=== PATIENT | female | born 1985 | race African-American/Black ===

== ENCOUNTER 2016-08-18 15:23 | Emergency (ER) | payer OTHER ==
[2016-08-18 16:07] LABS: Hematocrit 40.1 % (37.0-47.0); Hemoglobin 13.6 gm/dL (12.5-16.0); Mean Cell Volume 87.9 fl (78-100); Mean Corpuscular Hemoglobin 29.8 pg (27-31); Mean Corpuscular Hgb Conc 33.9 g/dl (32-36); Mean Platelet Volume 9.7 fl (6.0-9.5); Neutrophil # 5.6 K/mm3 (1.3-6.0); Neutrophil % 49.5 % (42-75.0); Platelet Count 324 K/mm3 (150-450); Red Blood Count 4.56 M/mm3 (4.2-5.4); Red Cell Distribution Width 11.9 % (11.5-14.0); White Blood Count 11.3 K/mm3 (4.0-10.5)
--- NOTE | 2016-08-18 16:09 | ERNOTE ---
Abdominal HPI - Narrative Date of Service: 08/18/16 - General Chief Complaint: Abdominal Pain Time Seen by Provider: 08/18/16 15:49 Source: patient, RN notes reviewed Exam Limitations: no limitations - Immun/Allergies/Home Medications Immunizatons: IMMUNIZATION HX Immunizations Up to Date Yes History of Influenza Vaccine Yes Hx Pneumococcal Vaccination No Allergies/Adverse Reactions: Allergies No Known Allergies Allergy (Unverified 08/18/16 15:42) Home Medications: HOME MEDICATIONS Norgestimate-Ethinyl Estradiol [Trinessa Lo Tablet] 1 each PO DAILY 08/18/16 [ Last Taken Unknown] Phentermine HCl [Adipex-P] 37.5 mg PO DAILY 08/18/16 [Last Taken Unknown] - History of Present Illness Narrative: 31 y/o female ambulatory to the ED for epigastric pain that began 4 days ago. It has been a burning pain and sometimes radiates across the right upper quadrant. She has had nausea but no vomiting or diarrhea. She states that she was having more frequent stools than normal yesterday, and they were light colored. She has tried various OTC meds for heartburn without improvement. Her pain gets worse when she eats. She has not eaten since 0900 but has been drinking water. She was being treated for sinusitis with Augmentin and prednisone. She stopped these yesterday because of her symptoms. Date (Duration): 08/14/16 Prior Abdominal Problems: Present: none Review of Systems - Review of Systems Constitutional: Present: fatigue, malaise. Absent: recent illness, fever EYE: Present: no symptoms reported ENT: Present: no symptoms reported Respiratory: Absent: shortness of breath, cough Cardiology: Absent: chest pain, palpitations Gastrointestinal/Abdominal: Present: nausea, eating less. Absent: vomiting, diarrhea, constipation, abdominal pain, drinking less Genitourinary: Absent: frequency, dysuria, hematuria Musculoskeletal: Absent: back pain, muscle pain Skin: Absent: rash, lesions Neurological: Absent: headache, dizziness/light-headedness Endocrine: Present: no symptoms reported Hematologic/Lymphatic: Present: no symptoms reported Psych: Present: no symptoms reported - Patient's Past Medical History Patient History - Medical: No pertinent hx Patient History - Cardiac/Respiratory: No pertinent hx Patient History - Cancer: No Hx of Cancer Patient History - Surgical Procedures: D & C, T & A Patient History - Other: None LMP (females 10-50): last week - Family History Mother Family History - Cardiac/Respiratory: No pertinent hx Family History - Cancer: No pertinent family hx Father Family History - Cardiac/Respiratory: Hypertension Family History - Cancer: No pertinent family hx - Social History Living Situations: alone Abuse History: No History of abuse Psych History: No pertinent hx Smoking Status: Never smoker Have you smoked in the past 12 months: No Do you dip or chew tobacco: No Patient requests Smoking Cessation Consult: No Initiate information on Smoking Cessation: No Alcohol Use: rarely Drug Use: none - Immunizations Immunizations Up to Date: Yes Hx Pneumococcal Vaccination: No History of Influenza Vaccine: Yes Physical Exam - Physical Exam General Appearance: Present: wd/wn, alert, no apparent distress Neck: Present: normal inspection, nontender, supple Respiratory: Present: no respiratory distress, normal breath sounds, no accessory muscle use, lungs clear Cardiovascular/Chest: Present: no murmur, normal peripheral pulses, tachycardia Gastrointestinal/Abdominal: Present: normal bowel sounds, nondistended, soft, tenderness - periumbillical and RLQ Back Exam: Present: normal inspection, no CVA tenderness Neurological Exam: Present: alert, oriented, normal mood/affect, no motor/ sensory deficits Skin Exam: Present: normal color, warm/dry ED Progress - Results and Orders Patient's Lab Results:: I have reviewed the patient's lab results. - Vital Signs Patient's Vital Signs:: I have reviewed the patient's vital signs. Vital Signs: Vital Signs 08/18/16 15:31 Temperature 36.1 C L Pulse Rate 108 H Respiratory 16 Rate Blood Pressure 160/96 O2 Sat by Pulse 96 Oximetry - EKG EKG: NSR EKG read: Reviewed by me - Progress/Reassessment Chief Complaint: Abdominal Pain Progress:: Improved Plan - Plan Plan: Mild elevation in WBC at 11.3 but has been on prednisone. 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 Some stool retention also noted on xray, milk of mag given prior to d/c. Agreeable to returning if symptoms worsen. Departure - Departure Clinical Impression: Abdominal pain Qualifiers: Abdominal location: unspecified location Qualified Code(s): R10.9 - Unspecified abdominal pain Disposition: Home self-care Condition: Good Instructions: Abdominal Pain, Adult, [id number] Additional Instructions: Finish Augmentin Hold Phentermine for now until you are feeling better Start Zantac bid to control acid reflux Return if symptoms worsen Referrals: Linda De La Torre, [employer] SERVICE REPRESENTATIVE [Primary Care Provider] -
--- OUTSIDE RECORDS SUMMARY | 2016-08-18 16:20 | XMS REPORT | Continuity of Care Document ---
:1985 Author Organization [facility] ([facility]) Address [address] [place] [address] Phone [phone] Care Team Providers Name Role Phone Provider, No-Primary Care Primary Care Provider Unavailable Source Comments This disclosure is being made pursuant to the Care Everywhere program, applicable federal and state laws, and may not contain all informaitonavailable regarding this patient.[facility] ([facility]) Active Allergies and Adverse Reactions Allergen Noted Date Severity Reactions Comments Penicillins Urticaria (Hives) Current Medications Not on file Active Problems Problem Noted Date Supervision of other normal 01/06/2008 Other known or suspected abnormality, not elsewhere classified, 2007 affecting management of mother, antepartum condition or complication Thyrotoxicosis without mention of goiter or other cause, without mention 01/05 of thyrotoxic crisis or storm Unspecified hypothyroidism 01/06/2008 Social History Tobacco Use Types Packs/Day Years Used Date Never Assessed Plan of Care Health Maintenance Due Date Last Done Comments Hepatitis B Vaccine (1 of 3 - Primary Series) 1985 Tdap Vaccine 1996 Lipid Disorder Screening 2003 MMR Vaccine 2003 Td Vaccine 2003 Cervical Cancer Screening 2015 01/29/2008 Influenza Vaccine: Seasonal (#1) 01/03/2016 Results from Last 3 Months Not on file
[2016-08-18 16:28] LABS: Albumin * 3.6 gm/dl (3.4-5.0); Anion Gap 12.7 mmol/L (6.8-13.8); BUN/Creatinine Ratio 12.9 (9.0-21.6); Bilirubin, Total 0.4 mg/dL (0.0-1.1); CRP 1.8 mg/dL (0.0-0.9); Ca. Corrected For Albumin 8.9 mg/dL (8.4-10.2); Calcium * 8.9 mg/dL (7.9-10.9); Carbon Dioxide 30.9 mmol/L (24-32.6); Potassium 3.6 mmol/L (3.4-4.6); Total Protein 7.9 gm/dL (6.2-8.2)
[2016-08-18] MEDS ORDERED: LIDOCAINE HCL 20 ML UDC PO ONE (16:52)
[2016-08-18] MEDS ORDERED: SUCRALFATE 1 G/10 ML UDC PO ONE (16:52)
[2016-08-18] MEDS ORDERED: MAG HYDROX/ALUMINUM HYD/SIMETH 30 ML UDC PO ONE (16:52)
[2016-08-18] MEDS ORDERED: MAGNESIUM HYDROXIDE 30 ML UDC PO ONE (17:39)
[2016-08-18 17:54] VITALS: BP 153/73
== END 2016-08-18 17:59 | disposition home or self-care (01) ==
LOC: ER 15:23
DX: R10.13 Epigastric pain (principal)